=== PATIENT | female | born 1995 | race Asian ===

== ENCOUNTER 2016-08-15 10:42 | Emergency (ER) | payer OTHER ==
[~2016-08-15] VITALS: Ht 152.4 cm; Wt 60.0 kg
[2016-08-15 10:52] VITALS: BP 133/79
== END 2016-08-15 13:52 | disposition home or self-care (01) ==
LOC: ER 12:57
DX: Z32.01 Encounter for pregnancy test, result positive (principal)
CPT/HCPCS: 99281